=== PATIENT | female | born 1955 | race Caucasian/White ===

== ENCOUNTER → 2017-08-21 | Outpatient (CLI) | payer OTHER ==
[~2017-08-21] MED LIST: DIAZ2TAB3 PO; HYDR-3237 PO; NONE PER PT
[2017-08-21 12:22] LABS: BASOPHILS # (AUTO) 0.06 x10^3/uL (0-0.1); BASOPHILS % (AUTO) 1 % (0-1); EOSINOPHILS # (AUTO) 0.05 x10^3/uL (0-0.4); EOSINOPHILS % (AUTO) 1 % (1-7); LYMPHOCYTES # (AUTO) 1.75 x10^3/uL (1-3.4); LYMPHOCYTES % (AUTO) 32 % (22-44); MD NO; MEAN CORPUSCULAR HGB CONC 33.7 g/dL (32.4-35.8); MEAN CORPUSCULAR VOLUME 88.9 fL (80-100); MEAN PLATELET VOLUME 9.1 fL (7.4-10.4); MONOCYTES # (AUTO) 0.62 x10^3/uL (0.2-0.8); MONOCYTES % (AUTO) 11 % (2-9); NEUTROPHILS # (AUTO) 2.94 x10^3/uL (1.8-6.8); NEUTROPHILS % (AUTO) 54 % (42-75); PLATELET COUNT 243 x10^3/uL (130-400); RED BLOOD COUNT 4.88 x10^6/uL (3.82-5.3); RED CELL DISTRIBUTION WIDTH 13.6 % (9.6-15.2)
[2017-08-21 12:22] LABS: MICROSCOPIC NOT IND
[2017-08-21 12:24] LABS: CULTURE INDICATED? NO
[2017-08-21 12:30] LABS: PROTHROMBIN TIME 10.3 Seconds (9.6-11.5)
[2017-08-21 12:33] LABS: CHLORIDE 106 mmol/L (98-107)
[2017-08-21 12:38] LABS: ALANINE AMINOTRANSFERASE 32 U/L (12-78); ALBUMIN 4.1 g/dL (3.4-5.0); ALKALINE PHOSPHATASE 99 U/L (45-117); ANION GAP 6 mmol/L (5-15); BILIRUBIN,TOTAL 0.7 mg/dL (0.2-1.0); CREATININE 0.79 mg/dL (0.55-1.02); TOTAL PROTEIN 8.1 g/dL (6.4-8.2)
== END | disposition home or self-care (01) ==
LOC: STAR 11:14
PROVIDERS: ATTEND Orthopaedic Surgery Orthopaedic Surgery of the Spine
DX: Z01.818 Encounter for other preprocedural examination (principal)
CPT/HCPCS: 36415; 71046; 80053; 81003; 85025; 85610; 85730; 93005

== ENCOUNTER 2017-08-26 05:45 | Inpatient (IN) | payer OTHER ==
[~2017-08-26] VITALS: Ht 156.2 cm; Wt 66.1 kg
[2017-08-26] MEDS ORDERED: LACTATED RINGERS 1,000 ML IV SCH (06:45)
[2017-08-26 06:48] VITALS: BP 124/86
[2017-08-26] MEDS ORDERED: THROMBIN 5,000 UNIT VIAL TP ONE (06:58)
[2017-08-26] MEDS ORDERED: VANCOMYCIN 1,000 MG ONE (06:58)
[2017-08-26] MEDS ORDERED: LIDOCAINE/PF 0.5% ,50ML ONE (06:58)
[2017-08-26] MEDS ORDERED: BUPIVACAINE/PF 0.5% ONE (06:58)
[2017-08-26] MEDS ORDERED: EPINEPHRINE 1 MG/ML, 1ML ONE (06:59)
[2017-08-26] MEDS ORDERED: FENTANYL PF 100 MCG/2ML ONE ×3 (07:32→12:01)
[2017-08-26] MEDS ORDERED: MIDAZOLAM 1 MG/ML, 2ML ONE ×2 (07:35)
[2017-08-26] MEDS ORDERED: SUCCINYLCHOLINE 20 MG/ML, 10ML ONE (07:38)
[2017-08-26] MEDS ORDERED: LIDOCAINE-MPF 2% ,5ML ONE (07:40)
[2017-08-26] MEDS ORDERED: PROPOFOL 10 MG/ML, 20ML ONE ×3 (07:40→07:59)
[2017-08-26] MEDS ORDERED: WATER-INJECTION,STERILE 10 ML IV ONE ×3 (07:43→12:42)
[2017-08-26] MEDS ORDERED: REMIFENTANIL 1 MG ONE (07:46)
[2017-08-26] MEDS ORDERED: LIDOCAINE GEL 2%, 5ML ONE (07:51)
[2017-08-26] MEDS ORDERED: PHENYLEPHRINE 10 MG/ML ONE (07:58)
[2017-08-26] MEDS ORDERED: EPHEDRINE 50 MG/ML, 1ML ONE ×2 (07:58→12:42)
[2017-08-26] MEDS ORDERED: GLYCOPYRROLATE 0.4 MG/2 ML, 2ML ONE (08:24)
[2017-08-26] MEDS ORDERED: CEFAZOLIN 1,000 MG ONE ×2 (08:30)
[2017-08-26] MEDS ORDERED: ONDANSETRON 2MG/ML, 2ML ONE (08:32)
[2017-08-26] MEDS ORDERED: DEXAMETHASONE 4 MG/ML, 1ML ONE ×3 (08:32→08:49)
[2017-08-26] MEDS ORDERED: METOCLOPRAMIDE 5 MG/ML, 2ML ONE (08:33)
[2017-08-26] MEDS ORDERED: MIDAZOLAM 1 MG/ML, 2ML IV PRN (10:30)
[2017-08-26] MEDS ORDERED: OXYcodone 5 MG/5 ML ORAL.SOL UDC PO PRN (10:30)
[2017-08-26] MEDS ORDERED: HYDROmorphone 1 MG/ML, 1ML IV PRN (10:30)
[2017-08-26] MEDS ORDERED: LABETALOL 5MG/ML, 20ML IV PRN (10:30)
[2017-08-26] MEDS ORDERED: MEPERIDINE/PF 25MG/0.5ML IVPush PRN (10:30)
[2017-08-26] MEDS ORDERED: ONDANSETRON 2MG/ML, 2ML IVPush PRN (10:30)
[2017-08-26] MEDS ORDERED: OXYcodone 5 MG/5 ML ORAL.SOL UDC ONE (11:54)
[2017-08-26] MEDS: FENTANYL PF 100 MCG/2ML IV PRN ×3 (12:02→15:10)
[2017-08-26 12:45] VITALS: BP 127/79
[2017-08-26] MEDS ORDERED: HYDROcodone/APAP 5/325 TABLET PO PRN (13:00)
[2017-08-26] MEDS ORDERED: PROMETHAZINE 25 MG/ML, 1ML IM PRN (13:00)
[2017-08-26] MEDS ORDERED: MORPHINE SULFATE 4 MG/ML, 1ML IV PRN (13:00)
[2017-08-26] MEDS ORDERED: DIAZEPAM 5 MG/ML, 2ML IV PRN (13:00)
[2017-08-26] MEDS ORDERED: DIAZEPAM 5 MG TABLET PO PRN (13:00)
[2017-08-26] MEDS ORDERED: MAGNESIUM HYDROXIDE 8%, 30ML UDC PO PRN (13:00)
[2017-08-26] MEDS ORDERED: BISACODYL 10 MG SUPP PR PRN (13:00)
[2017-08-26] MEDS: D5%-0.9% NACL+KCL 20MEQ 1,000 ML IV SCH (15:15)
[2017-08-26] MEDS: HYDROcodone/APAP 10/325 MG TABLET PO PRN (15:38)
[2017-08-26] MEDS: CEFAZOLIN PMX 1GM/50ML 50 ML IVPB SCH (15:39)
[2017-08-26] MEDS: ONDANSETRON 2MG/ML, 2ML IV PRN (15:39)
[2017-08-26 20:23] VITALS: BP 96/57
[2017-08-26 23:58] VITALS: BP 94/59
[2017-08-27] MEDS: HYDROcodone/APAP 10/325 MG TABLET PO PRN ×3 (00:56→14:13)
[2017-08-27] MEDS: CEFAZOLIN PMX 1GM/50ML 50 ML IVPB SCH (00:57)
[2017-08-27] MEDS: ONDANSETRON 2MG/ML, 2ML IV PRN ×2 (01:51→12:50)
[2017-08-27] MEDS: D5%-0.9% NACL+KCL 20MEQ 1,000 ML IV SCH ×2 (01:51→11:30)
[2017-08-27 01:53] VITALS: BP 116/74
[2017-08-27 07:56] VITALS: BP 101/64
[2017-08-27] MEDS: SENNA/DOCUSATE TABLET PO SCH ×2 (09:00→09:31)
[2017-08-27 12:45] VITALS: BP 94/57
[2017-08-27] MEDS ORDERED: HYDR-3307 PO (12:57)
[2017-08-27] MEDS ORDERED: ONDA4TAB10 PO (13:02)
[2017-08-27 14:14] VITALS: BP 103/64
== END 2017-08-27 15:33 | disposition home or self-care (01) | DRG 30 ==
LOC: ORIP 05:45 → 4NOR 12:36 → DCLOUNGE 08-27 15:09
PROVIDERS: ADMIT Orthopaedic Surgery Orthopaedic Surgery of the Spine; ATTEND Orthopaedic Surgery Orthopaedic Surgery of the Spine
PROC: 0RG1071 Fusion of Cervical Vertebral Joint with Autologous Tissue Substitute, Posterior Approach, Posterior Column, Open Approach (ICD-10-PCS; principal; 2017-08-26 07:30)
DX: M54.12 Radiculopathy, cervical region (principal)
CPT/HCPCS: 72040; 95938; 95941; C1713; J0171; J0690; J1100; J2001; J2250; J2405; J2704; J3010; J3370; J3490; J0330; J2370; J2765; J3480; J7120